=== PATIENT | female | born 1950 | race African-American/Black ===

== ENCOUNTER → 2021-08-03 10:36 | Outpatient (CLI) | payer MEDICARE, SELFPAY ==
--- NOTE | ~2021-08-03 | US_ITS ---
EXAMINATION: US pelvic complete w TV DATE: 08/03/2021 11:20 INDICATION: Abdominal bloating Comparison:No prior studies for comparison. TECHNIQUE: Multiple transabdominal and endovaginal sonographic images of the pelvis performed. FINDINGS: The uterus is surgically absent. The ovaries are not identified, likely atrophic. There is no free fluid in the pelvis. There are no abnormal masses seen on either side. IMPRESSION: 1. Unremarkable pelvic ultrasound post hysterectomy. Reviewed, dictated and finalized at location B. SWITCHMAN
== END ==
PROVIDERS: Visit Provider Obstetrics & Gynecology
DX: R14.0 Abdominal distension (gaseous) (principal); Z90.710 Acquired absence of both cervix and uterus
CPT/HCPCS: 76830; 76856

== ENCOUNTER 2022-01-09 19:39 | Emergency (ER) | payer MEDICARE, SELFPAY ==
--- NOTE | ~2022-01-09 | CT_ITS ---
EXAMINATION: CT brain wo con DATE: 01/09/2022 20:04 INDICATION: right sided headache TECHNIQUE: Computed tomography (CT) of the head was performed without intravenous contrast. The mA wa s adjusted according to patient size. Iterative reconstruction technique was employed. The dose-lengt h product was 605.33 mGy-cm. COMPARISON: 06/16/2018. FINDINGS: No acute intracranial hemorrhage or extra-axial fluid collection. No hydrocephalus, mass, or herniation. No acute ischemic infarct. Unremarkable dural venous sinus attenuation. No acute osseous abnormality. The aerated spaces are clear. Left lens replacement. Atherosclerotic intracranial calcifications. Mild atrophy and chronic white ma tter change. IMPRESSION: No acute intracranial process. Reviewed, dictated and finalized at location K.
--- NOTE | ~2022-01-09 | XR_ITS ---
EXAMINATION: XR chest 2V Exam Date/Time: 01/09/2022 19:53 CDT CLINICAL HISTORY: chest pressure Comparison: 08/04/2019. RESULT: Lines, tubes, and devices: Cholecystectomy clips. Lungs and pleura: Clear. Cardiomediastinal silhouette: Stable cardiomediastinal silhouette. Other: No acute osseous or upper abdominal finding. IMPRESSION: No acute cardiopulmonary process Reviewed, dictated and finalized at location K.
[2022-01-09 19:44] VITALS: BP 195/82; PULSE 81; RESP 16; TEMP 36.8; O2SAT 100
--- NOTE | 2022-01-09 19:49 | ECG_ITS ---
Measurements Intervals [place] Rate: 73 P: 58 NC: 163 QRS: 16 QRSD: 84 T: 86 QT: 366 QTc: 404 Interpretive Statements SINUS RHYTHM CANNOT RULE OUT SEPTAL INFARCT, AGE INDETERMINATE BORDERLINE T WAVE ABNORMALITY- HIGH LATERAL LEADS BASELINE ARTIFACT- I, AVR, AVL ABNORMAL ECG Electronically Signed On 01-09-2022 20:04:21 CDT by Gilbert Angel D.O.
[2022-01-09 20:14] LABS: Basophils Percent Auto 0.5 % (0.2-1.2); Eosinophils Absolute Auto 0.3 K/mm3 (0-0.3); Eosinophils Percent Auto 3.7 % (0-4.4); Hematocrit 45.7 % (37.0-47.0); Hemoglobin 14.8 g/dL (12.0-15.0); Immature Granulocyte Absolute 0.03 K/mm3 (0.00-0.031); Immature Granulocyte Percent A 0.4 % (0-0.5); Lymphocytes Absolute Auto 3.85 K/mm3 (0.9-3.2); Lymphocytes Percent Auto 46.3 % (18.3-44.2); Mean Corpuscular HGB Conc 32.4 g/dl (32-36); Mean Corpuscular Hemoglobin 28.5 pg (26-34); Mean Corpuscular Volume 88.1 fl (80-100); Mean Platelet Volume 10.4 fl (7.4-10.4); Monocytes Absolute Auto 0.5 K/mm3 (0.1-0.6); Monocytes Percent Auto 5.9 % (2.6-8.5); Neutrophils Absolute Auto 3.6 K/mm3 (1.3-6.7); Neutrophils Percent Auto 43.2 % (45.5-73.1); Platelet Count Result 267 k/mm3 (150-375); Red Blood Count 5.19 M/mm3 (4.2-5.4); Red Cell Distribution Width 14.2 % (11.5-14.5); White Blood Count 8.3 K/mm3 (4.5-10.0)
[2022-01-09 20:26] LABS: Alanine Aminotransferase 19 U/L (6-35); Albumin Level 4.5 g/dL (3.5-5.1); Alkaline Phosphatase 87 U/L (38-126); Anion Gap 8 mmol/L (8-16); Aspartate Amino Transferase 28 U/L (14-36); Bilirubin,Total 0.6 mg/dL (0.2-1.3); Blood Urea Nitrogen 16 mg/dL (7-17); Calcium 9.1 mg/dL (8.4-10.2); Carbon Dioxide 29 mmol/L (22-30); Chloride 103 mmol/L (98-107); Estimated CRCL calculation 43 ml/min; Estimated Glomerular Filt Rate 60; Glucose 110 mg/dL (65-110); Lipase 160 U/L (23-300); Potassium 4.1 mmol/L (3.4-5.0); Sodium 140 mmol/L (137-145)
[2022-01-09 20:30] LABS: INR 1.1; Prothrombin Time 13.6 Seconds (11.1-14.7)
[2022-01-09 20:31] LABS: Partial Thromboplastin Time 23.9 SECONDS (22.3-36.8)
[2022-01-09 20:41] LABS: Troponin I < 0.012 ng/mL (0.000-0.034)
--- NOTE | 2022-01-09 22:34 | PC.NURSE ---
Pt states she took aspirin earlier today with no relief. Pt also states she hasnt been taking her BP medications consistently. Last time she took medications was yesterday.
[2022-01-09 22:35] VITALS: BP 180/87; PULSE 72; RESP 18; O2SAT 99
--- NOTE | 2022-01-09 22:43 | ED.HA ---
HPI - Headache General Chief Complaint: Headache Stated Complaint: headache and chest discomfort Time Seen by Provider: 01/09/22 21:49 History of Present Illness HPI Narrative: 71-year-old female presenting to the emergency department for evaluation of intermittent headache and elevated blood pressure. Patient states that this has been an ongoing issue for the last few days. Patient does report she has been having intermittent chest pressure over the last few months. Patient denies any change in her chest pressure. Patient does take medications for her blood pressure and did take her amlodipine prior to arrival. Related Data Allergies Allergy/AdvReac Type Severity Reaction Status Date / Time ciprofloxacin Allergy Unknown Unknown Verified 08/04/19 17:12 Review of Systems Review of Systems: CONSTITUTIONAL: Denies fever, chills, or sweats. EYES: Denies visual changes, redness, or discharge. ENT: Denies rhinorrhea, congestion, sore throat, or otalgia. CARDIOVASCULAR: Chest pressure RESPIRATORY: Denies cough or dyspnea. GASTROINTESTINAL: Denies abdominal pain, nausea, vomiting, or diarrhea. GENITOURINARY: Denies dysuria or hematuria. SKIN: Denies rash or itching. MUSCULOSKELETAL: Denies back pain, joint pain, or myalgia. NEUROLOGIC: Headache but denies any associated numbness or weakness. PSYCHIATRIC: Denies anxiety or depression. [facility] Past Medical History Medical History (Updated 01/11/22 @ 00:00 by Jeannine Dadesiree) Hypertension Surgical History Surgical History Hx of cholecystectomy Family History Family History Mother Heart disease Social History Social History Smoking status: Never smoker Gender identity (if verbalized by the patient): Female Exam Narrative: APPEARANCE: Well appearing, no pain, no distress, well-nourished. HEAD: normocephalic, atraumatic. EYES: PERRLA/EOMI, conjunctivae clear. NOSE: Normal no drainage EARS:TMS clear with good light reflex. THROAT: Pharynx clear, no exudate. NECK: Supple. No adenopathy, no masses. RESPIRATORY: Airway patent, respirations nonlabored. Clear to auscultation bilaterally, no rales, rhonchi, wheezing. CARDIOVASCULAR: Regular rate and rhythm without murmurs rubs or gallops. ABDOMINAL: Soft, nontender, nondistended, normal bowel sounds MUSCULOSKELETAL: Moves all extremities. Strength/ROM intact, No edema, No calf tenderness. NEURO: Alert. Cranial nerves II through XII intact. Good gait. Good coordination SKIN: Warm, dry. Normal Color Course Course Emergency Course: Patient describes a sharp intermittent right-sided facial pain. Patient was started on carbamazepine and provided some hydrocodone for additional pain control. Patient states this did help her symptoms to a small extent. Patient was encouraged to continue have close follow-up with her primary care physician and with neurology. Patient had a negative head CT and chest x-ray showed no acute cardiopulmonary normality. Patient did have a negative troponin. Patient states that her symptoms have improved. Patient was updated on the results of her work-up. All questions and concerns were addressed. Vital Signs Vital signs: Vital Signs Temperature 98.2 F 01/09/22 19:44 Pulse Rate 81 01/09/22 19:44 Respiratory Rate 16 01/09/22 19:44 Blood Pressure 195/82 H 01/09/22 19:44 Pulse Oximetry 100 01/09/22 19:44 Oxygen Delivery Room Air 01/09/22 19:44 Temperature 98.2 F 01/09/22 19:44 Pulse Rate 65 01/10/22 01:15 Respiratory Rate 16 01/10/22 01:15 Blood Pressure 139/82 01/10/22 01:15 Pulse Oximetry 95 01/10/22 01:15 Oxygen Delivery Room Air 01/09/22 19:44 MDM - Headache Lab Data Result diagrams: 01/09/22 20:09 01/09/22 20:09 Labs: Lab Results
[2022-01-09] MEDS: HYDROcodone/acetaminophen (*CRX) 5-325 MG TABLET 1 TAB PO (22:57)
[2022-01-09 23:23] LABS: Troponin I < 0.012 ng/mL (0.000-0.034)
[2022-01-10] MEDS: KETOROLAC 15 MG/ML VIAL (*BKC) IV PUSH (00:16)
[2022-01-10 01:15] VITALS: BP 139/82; PULSE 65; RESP 16; O2SAT 95
== END 2022-01-10 01:16 | disposition home or self-care (01) ==
PROVIDERS: Emergency Provider Emergency Medicine
DX: G50.0 Trigeminal neuralgia (principal); I10 Essential (primary) hypertension; R94.31 Abnormal electrocardiogram [ECG] [EKG]; R07.89 Other chest pain
CPT/HCPCS: 36415; 70450; 71046; 80053; 83690; 84484; 85025; 85610; 85730; 93005; 96374; 99284; A9270; J1885

== ENCOUNTER 2022-05-17 11:07 | Emergency (ER) | payer MEDICARE, SELFPAY ==
--- NOTE | ~2022-05-17 | CT_ITS ---
EXAMINATION: CT abdomen pelvis wo con DATE: 05/17/2022 12:24 INDICATION: Abdominal pain, hypertension TECHNIQUE: Computed tomography (CT) of the right flank pain was performed without intravenous contras t. The dose-length product (DLP) was 622.91 mGy-cm. Automated exposure control and iterative reconstr uction technique were employed. COMPARISON: 04/12/2015 FINDINGS: Minimal dependent atelectasis is present in the lung bases. The heart size is normal. The g allbladder is surgically absent. There is a 7 mm cyst in the right hepatic lobe. Punctate calcificati ons in an otherwise normal spleen likely represent healed granulomatous disease. The pancreas and adr enal glands are normal. The right kidney is unremarkable. There is a punctate nonobstructing stone of the left kidney upper pole. No pathologically enlarged abdominal or pelvic lymph nodes are identifie d. There is no free intraperitoneal gas or evidence of bowel obstruction. There is mild lumbar spondy losis. IMPRESSION: 1. No CT correlate for the patient's symptoms. Reviewed, dictated and finalized at location B.
[2022-05-17 11:11] VITALS: BP 173/75; PULSE 57; RESP 20; TEMP 36.1; O2SAT 100
[2022-05-17 11:49] VITALS: BP 170/70
--- NOTE | 2022-05-17 12:00 | ECG_ITS ---
Measurements Intervals [place] Rate: 56 P: 66 MS: 176 QRS: 12 QRSD: 81 T: 97 QT: 396 QTc: 384 Interpretive Statements SINUS BRADYCARDIA CANNOT RULE OUT SEPTAL INFARCT, AGE INDETERMINATE BORDERLINE ST-T WAVE ABNORMALITY- LAT/HIGH LAT LEADS BASELINE ARTIFACT- V3 ABNORMAL ECG COMPARED TO ECG 01/09/2022 19:54:03 SINUS BRADYCARDIA NOW PRESENT Electronically Signed On 05-17-2022 13:39:34 CDT by Gilbert Angel D.O.
--- NOTE | 2022-05-17 12:00 | ED.ABDPAIN ---
HPI - Abdominal Pain General Chief Complaint: Abdominal Pain Stated Complaint: high blood pressure, abd pain Time Seen by Provider: 05/17/22 11:34 History of Present Illness HPI narrative: 71-year-old female presents to the emergency room today for complaints of elevated blood pressure for the past 2 weeks and epigastric and right flank pain that has been going on for a while now. She says that she wakes up every morning with a mild headache. She says is not bad enough to take anything [id number] for it. She says that in the mornings her blood pressure will be around 200/98. She did schedule a follow-up with her primary care provider but it will not be until next Saturday. She does have a history of hypertension and says that she does take medication for this. She denies having any vomiting or diarrhea but does report that she feels nauseated at times. She has previously had her gallbladder removed. She is more bothered by the right flank pain that she has been having and is worried about her kidney. Related Data Allergies Allergy/AdvReac Type Severity Reaction Status Date / Time ciprofloxacin Allergy Unknown Unknown Verified 08/04/19 17:12 Review of Systems Review of Systems: CONSTITUTIONAL: Denies fever, chills, or sweats. EYES: Denies visual changes, redness, or discharge. ENT: Denies rhinorrhea, congestion, sore throat, or otalgia. CARDIOVASCULAR: Denies chest pain, palpitations, or edema. RESPIRATORY: Denies cough or dyspnea. GASTROINTESTINAL: As per HPI GENITOURINARY: Denies dysuria or hematuria. Reports right flank pain SKIN: Denies rash or itching. MUSCULOSKELETAL: Denies back pain, joint pain, or myalgia. NEUROLOGIC: reports headache, Denies numbness, dizziness, or weakness. PSYCHIATRIC: Denies anxiety or depression. [facility] Past Medical History Medical History (Updated 05/17/22 @ 14:02 by Kaley Reich APRN) Hypertension Surgical History Surgical History Hx of cholecystectomy Family History Family History Mother Heart disease Social History Social History Smoking status: Never smoker Gender identity (if verbalized by the patient): Female Exam Narrative: GENERAL: Well-appearing, well-nourished, and in no acute distress. HEAD: Normocephalic, atraumatic. EYES: PERRLA and EOMI. NECK: Supple. No adenopathy or masses. CHEST: Clear to auscultation. No respiratory distress. No wheezes rales or rhonchi HEART: Regular rate and rhythm. No murmur heard. Normal peripheral pulses. ABDOMEN: Soft, nontender, nondistended, normal active bowel sounds. EXTREMITIES: Normal range of motion. No edema. SKIN: Warm, dry, no rash. NEURO: No focal deficits. Alert and oriented x3. PSYCH: Normal mood and affect. Course Vital Signs Vital signs: Vital Signs Temperature 36.1 C L 05/17/22 11:11 Pulse Rate 57 L 05/17/22 11:11 Respiratory Rate 20 05/17/22 11:11 Blood Pressure 173/75 H 05/17/22 11:11 Pulse Oximetry 100 05/17/22 11:11 Oxygen Delivery Room Air 05/17/22 11:11 Temperature 36.1 C L 05/17/22 11:11 Pulse Rate 57 L 05/17/22 11:11 Respiratory Rate 20 05/17/22 11:11 Blood Pressure 170/70 H 05/17/22 11:49 Pulse Oximetry 100 05/17/22 11:11 Oxygen Delivery Room Air 05/17/22 11:11 MDM - Abdominal Pain Lab Data Attestation: I reviewed the patient's lab results. Result diagrams: 05/17/22 13:17 05/17/22 13:17 Labs: Lab Results 05/17/22 05/17/22 05/17/22 Range/Units 13:17 13:17 13:17 WBC 7.6 (4.5-10.0) K/mm3 RBC 5.00 (4.2-5.4) M/mm3 Hgb 14.1 (12.0-15.0) g/dL Hct 43.5 (37.0-47.0) % MCV 87.0 (80-100) fl MCH 28.2 (26-34) pg MCHC 32.4 (32-36) g/dl RDW 14.7 H (11.5-14.5) % Plt Count 193 (150-375) k/mm3 MPV
[2022-05-17 13:25] LABS: Basophils Absolute Auto 0.1 K/mm3 (0.0-0.1); Basophils Percent Auto 0.7 % (0.2-1.2); Eosinophils Absolute Auto 0.2 K/mm3 (0-0.3); Eosinophils Percent Auto 2.6 % (0-4.4); Hematocrit 43.5 % (37.0-47.0); Hemoglobin 14.1 g/dL (12.0-15.0); Immature Granulocyte Absolute 0.02 K/mm3 (0.00-0.031); Immature Granulocyte Percent A 0.3 % (0-0.5); Lymphocytes Percent Auto 42.3 % (18.3-44.2); Mean Corpuscular HGB Conc 32.4 g/dl (32-36); Mean Corpuscular Hemoglobin 28.2 pg (26-34); Monocytes Absolute Auto 0.4 K/mm3 (0.1-0.6); Monocytes Percent Auto 5.3 % (2.6-8.5); Neutrophils Absolute Auto 3.7 K/mm3 (1.3-6.7); Neutrophils Percent Auto 48.8 % (45.5-73.1); Platelet Count Result 193 k/mm3 (150-375); Red Cell Distribution Width 14.7 % (11.5-14.5); White Blood Count 7.6 K/mm3 (4.5-10.0)
[2022-05-17 13:28] LABS: Appearance Urine Clear (Clear); Bilirubin Urine Negative (Negative); Blood Urine Negative (Negative); Color Urine Yellow (Yellow); Glucose Urine UA Negative (Negative); Ketones Urine Negative (Negative); Leukocyte Esterase Ur 1+ LEU/UL (Negative); Nitrate Urine Negative (Negative); Protein Urine Negative (Negative); Urobilinogen Urine 0.2 mg/dL (<2.0); pH Urine 5.5 (5.0-9.0)
[2022-05-17 13:36] LABS: Alanine Aminotransferase 17 U/L (6-35); Albumin Level 4.2 g/dL (3.5-5.1); Alkaline Phosphatase 83 U/L (38-126); Anion Gap 7 mmol/L (8-16); Aspartate Amino Transferase 21 U/L (14-36); Bilirubin,Total 0.6 mg/dL (0.2-1.3); Blood Urea Nitrogen 16 mg/dL (7-17); Calcium 9.4 mg/dL (8.4-10.2); Carbon Dioxide 27 mmol/L (22-30); Chloride 107 mmol/L (98-107); Estimated CRCL calculation 43 ml/min; Estimated Glomerular Filt Rate 60; Glucose 113 mg/dL (65-110); Lipase 117 U/L (23-300); Potassium 4.5 mmol/L (3.4-5.0); Sodium 141 mmol/L (137-145)
[2022-05-17 13:43] LABS: Mucus Urine Rare /lpf; Squamous Epithelial Cell Urine Occasional /hpf (Few)
[2022-05-17 13:48] LABS: Add Urine Microscopic? YES; Troponin I < 0.012 ng/mL (0.000-0.034)
== END 2022-05-17 14:22 | disposition home or self-care (01) ==
PROVIDERS: Emergency Provider Nurse Practitioner Family
DX: N39.0 Urinary tract infection, site not specified (principal); I10 Essential (primary) hypertension; R10.9 Unspecified abdominal pain; R10.13 Epigastric pain; G89.29 Other chronic pain
CPT/HCPCS: 36415; 74176; 80053; 81001; 83690; 84484; 85025; 87086; 87088; 93005; 99284

== ENCOUNTER 2023-12-25 12:18 | Emergency (ER) | payer MEDICARE, SELFPAY ==
[2023-12-25 12:20] VITALS: BP 152/77; PULSE 65; RESP 22; TEMP 36.8; O2SAT 100
--- NOTE | 2023-12-25 12:27 | ECG_ITS ---
SEE SCANNED COPY FOR CONFIRMED REPORT MTDD
[2023-12-25] MEDS: ASPIRIN 81 MG CHEWABLE TABLET 324 MG PO (12:34)
--- NOTE | 2023-12-25 12:41 | ED.GENADULT ---
HPI - General Adult General Chief complaint: Chest Pain Stated complaint: stomach discomfort,left arm hurts, chest pain Source: patient Mode of arrival: ambulatory Limitations: no limitations History of Present Illness HPI narrative: Patient presents for evaluation of left-sided chest pain for the past week. She states pain is intermittent, without descriptive quality, rated 8/10 in severity. She states pain occurs once per day. She cannot identify and aggravating or alleviating factors. She is not having any chest pain at the present time. She reports a constant pain in her LUE for the same duration of time. She rates the pain 7/10 severity describes it as a dull ache. She reports a sensation of a lump in the abdomen . She has SOB and states she feels a need to cough in order to breathe . She has an underlying history of HTN and hyperlipidemia. She states two years ago she was told she had a myocardial infarction. She did not follow up with cardiology. She saw her PCP 2 days ago and mentioned her symptoms at that time. She states she was prescribed medication to address her cholesterol two days ago but did not pick it up. She does not smoke. She states she did not seek medical attention earlier because she is stubborn . Related Data Allergies Allergy/AdvReac Type Severity Reaction Status Date / Time ciprofloxacin Allergy Unknown Unknown Verified 08/04/19 17:12 Review of Systems Review of Systems: CONSTITUTIONAL: Denies fever, chills, or sweats. EYES: Denies visual changes, redness, or discharge. ENT: Denies rhinorrhea, congestion, sore throat, or otalgia. CARDIOVASCULAR: Reports recent chest pain, none currently. Denies palpitations RESPIRATORY: Reports SOB and feels the need to cough in order to breathe GASTROINTESTINAL: Reports a sensation of a lump in the abdomen. Denies abdominal pain, nausea, vomiting, or diarrhea. GENITOURINARY: Denies dysuria or hematuria. SKIN: Denies rash or itching. MUSCULOSKELETAL: Reports pain in LUE NEUROLOGIC: Denies headache, numbness, dizziness, or weakness. PSYCHIATRIC: Denies anxiety or depression. [facility] Past Medical History Medical History Hyperlipidemia Hypertension Myocardial infarction Surgical History Surgical History Hx of cholecystectomy Family History Family History (Reviewed 12/25/23 @ 12:49 by Sb Juarez [facility]) Mother Heart disease Social History Social History (Updated 12/25/23 @ 12:50 by Sb Juarez [facility]) Smoking status: Never smoker Alcohol intake: never Substance use: never Living arrangements: with family Gender identity (if verbalized by the patient): Female Sexual Orientation (if Verbalized by the Patient): Straight or Heterosexual Spiritual care concerns: No Exam Narrative: GENERAL: Well-appearing, well-nourished, and in no acute distress. HEAD: Normocephalic, atraumatic. EYES: PERRLA and EOMI. ENT: Nares clear, no rhinorrhea or epistaxis. Mucous membranes moist. Oropharynx without tonsillar hypertrophy exudate or other lesions. Bilateral TMs pearly araiza nonbulging NECK: Supple. No adenopathy or masses. No carotid bruits or JVD CHEST: Clear to auscultation. No respiratory distress. No wheezes rales or rhonchi HEART: Regular rate and rhythm. No murmur heard. Normal peripheral pulses. ABDOMEN: Soft, nontender, nondistended, normal active bowel sounds. EXTREMITIES: Normal range of motion. No edema. SKIN: Warm, dry, no rash. NEURO: No focal deficits. Alert and oriented x3. PSYCH: Normal mood and affect. Course Course Emergency Course: this is a 73-year-old female who presented for evaluation of chest pain and left upper extremity pain. She has multiple risk factors for ACS. Recommend she be transferred to the emergency department for further workup. She is agreeable
== END 2023-12-25 12:38 | disposition short-term general hospital (02) ==
PROVIDERS: Emergency Provider Nurse Practitioner
DX: R07.9 Chest pain, unspecified (principal); E78.5 Hyperlipidemia, unspecified; I10 Essential (primary) hypertension; I25.2 Old myocardial infarction
CPT/HCPCS: 93005; 99215; A9270; G0463

== ENCOUNTER 2023-12-25 12:56 | Emergency (ER) | payer MEDICARE, SELFPAY ==
--- NOTE | ~2023-12-25 | XR_ITS ---
EXAMINATION: XR chest 2V 12/25/2023 14:00 INDICATION: Chest pain. Left arm pain. PROCEDURE: 2 view chest COMPARISON: No prior studies for comparison. FINDINGS: There is right middle lobe atelectasis/scarring. No focal pneumonia, edema, pleural effusio n or pneumothorax. The cardiomediastinal silhouette is within normal limits. There are no pleural ef fusions. There is no pneumothorax suspected. IMPRESSION: 1: Right middle lobe atelectasis/scarring.. Reviewed, dictated and finalized at location B.
--- NOTE | 2023-12-25 12:57 | ECG_ITS ---
SEE SCANNED COPY FOR CONFIRMED REPORT MTDD
[2023-12-25 13:02] VITALS: BP 160/55; PULSE 60; RESP 16; TEMP 36.4; O2SAT 98
[2023-12-25 13:22] LABS: Basophils Percent Auto 0.5 % (0.2-1.2); Eosinophils Absolute Auto 1.2 K/mm3 (0-0.3); Eosinophils Percent Auto 14.4 % (0-4.4); Hemoglobin 14.6 g/dL (12.0-15.0); Immature Granulocyte Absolute 0.03 K/mm3 (0.00-0.031); Immature Granulocyte Percent A 0.4 % (0-0.5); Lymphocytes Absolute Auto 3.35 K/mm3 (0.9-3.2); Lymphocytes Percent Auto 41.3 % (18.3-44.2); Mean Corpuscular HGB Conc 32.4 g/dl (32-36); Mean Corpuscular Volume 86.4 fl (80-100); Mean Platelet Volume 10.7 fl (7.4-10.4); Monocytes Absolute Auto 0.5 K/mm3 (0.1-0.6); Monocytes Percent Auto 6.7 % (2.6-8.5); Neutrophils Percent Auto 36.7 % (45.5-73.1); Platelet Count Result 250 k/mm3 (150-375); Red Blood Count 5.21 M/mm3 (4.2-5.4); Red Cell Distribution Width 14.6 % (11.5-14.5); White Blood Count 8.1 K/mm3 (4.5-10.0)
[2023-12-25 13:51] LABS: Alanine Aminotransferase 18 U/L (6-35); Albumin Level 4.3 g/dL (3.5-5.1); Alkaline Phosphatase 82 U/L (38-126); Anion Gap 6 mmol/L (4-12); Aspartate Amino Transferase 25 U/L (14-36); Bilirubin,Total 0.7 mg/dL (0.2-1.3); Blood Urea Nitrogen 13 mg/dL (7-17); Carbon Dioxide 25 mmol/L (22-30); Chloride 106 mmol/L (98-107); Estimated Glomerular Filt Rate > 60; Glucose 86 mg/dL (65-110); Lipase 143 U/L (23-300); Potassium 4.4 mmol/L (3.4-5.0); Sodium 137 mmol/L (137-145)
[2023-12-25 14:03] LABS: Troponin I < 0.012 ng/mL (0.000-0.034)
[2023-12-25 15:35] VITALS: BP 178/69; PULSE 56; TEMP 36.3; O2SAT 100
--- NOTE | 2023-12-25 15:37 | ECG_ITS ---
SEE SCANNED COPY FOR CONFIRMED REPORT MTDD
[2023-12-25 16:07] LABS: Prothrombin Time 13.7 Seconds (11.1-14.7)
[2023-12-25 16:19] LABS: Troponin I < 0.012 ng/mL (0.000-0.034)
--- NOTE | 2023-12-25 16:33 | ED.CHESTPAIN ---
HPI - Chest Pain General Chief Complaint: Chest Pain Stated Complaint: resolved cp Time Seen by Provider: 12/25/23 16:38 Source: patient Mode of arrival: ambulatory Limitations: no limitations History of Present Illness HPI narrative: This is a 73-year-old female with PMH of HTN, CAD who presents to the ED with chief complaint of chest pain intermittent for the past week. Patient reports it feels like the pain goes from the left arm into the chest at times. As I interviewed the patient she states she is asymptomatic. Reports pain spontaneously resolved. No specific triggering factors. No association with exertion. Denies syncope, sweats, vomiting or nausea. Denies leg swelling. Denies cough, fevers, chills, back pain, numbness, weakness. States she has been taking most of her medications as prescribed but ran out of carvedilol and has not been taking any since. Related Data Home Medications Medication Instructions Recorded Confirmed amlodipine 5 mg tablet 5 mg PO DAILY 12/25/23 12/25/23 atorvastatin 10 mg tablet 10 mg PO DAILY 12/25/23 12/25/23 brimonidine 0.2 % eye drops See Rx Instructions .Route .COMPLEX 12/25/23 12/25/23 brinzolamide 1 %-brimonidine 0.2 % See Rx Instructions .Route .COMPLEX 12/25/23 12/25/23 eye drops,suspension (Simbrinza) dorzolamide 2 % eye drops See Rx Instructions .Route .COMPLEX 12/25/23 12/25/23 latanoprost 0.005 % eye drops See Rx Instructions .Route .COMPLEX 12/25/23 12/25/23 omeprazole 40 mg capsule,delayed 40 mg PO DAILY 12/25/23 12/25/23 release Allergies Allergy/AdvReac Type Severity Reaction Status Date / Time ciprofloxacin Allergy Unknown Unknown Verified 12/25/23 15:03 Review of Systems Review of Systems: All systems as dictated in HPI [facility] Past Medical History Medical History Hyperlipidemia Hypertension Myocardial infarction Surgical History Surgical History Hx of cholecystectomy Family History Family History (Reviewed 12/25/23 @ 12:49 by LARISSA Dockery, Tianna Mother Heart disease Social History Social History (Updated 12/25/23 @ 12:[address] [facility], ) Smoking status: Never smoker Alcohol intake: never Substance use: never Living arrangements: with family Gender identity (if verbalized by the patient): Female Sexual Orientation (if Verbalized by the Patient): Straight or Heterosexual Spiritual care concerns: No Exam Narrative: GENERAL: Well-appearing, well-nourished, and in no acute distress. HEAD: Normocephalic, atraumatic. EYES: PERRLA and EOMI. ENT: Nares clear, no rhinorrhea or epistaxis. Mucous membranes moist. Oropharynx without tonsillar hypertrophy exudate or other lesions. NECK: Supple. No adenopathy or masses. CHEST: No respiratory distress. Clear to auscultation. No wheezes rales or rhonchi HEART: Regular rate and rhythm. No murmur heard. Normal peripheral pulses. ABDOMEN: Soft, nontender, nondistended, normal active bowel sounds. MSK: Normal range of motion. No edema. SKIN: Warm, dry, no rash. NEURO: Alert and oriented x3. No focal deficits. PSYCH: Normal mood and affect. Course Vital Signs Vital signs: Vital Signs Temperature 97.6 F 12/25/23 13:02 Pulse Rate 60 12/25/23 13:02 Respiratory Rate 16 12/25/23 13:02 Blood Pressure 160/55 H 12/25/23 13:02 Pulse Oximetry 98 12/25/23 13:02 Temperature 97.4 F L 12/25/23 15:35 Pulse Rate 56 L 12/25/23 15:35 Respiratory Rate 16 12/25/23 13:02 Blood Pressure 178/69 H 12/25/23 15:35 Pulse Oximetry 99 12/25/23 16:53 Oxygen Delivery Room Air 12/25/23 16:53 MDM - Chest Pain MDM Narrative Medical decision making narrative: This is a 73-year-old female who presents to the ED with chief complaint of intermittent chest pain for a week. Patient is actually asymptomatic by the fernando
[2023-12-25 16:53] VITALS: O2SAT 99
== END 2023-12-25 16:54 | disposition home or self-care (01) ==
LOC: ANHED 16:42
PROVIDERS: Student in an Organized Health Care Education/Training Program; Emergency Provider Physician Assistant
DX: R07.9 Chest pain, unspecified (principal); I25.10 Atherosclerotic heart disease of native coronary artery without angina pectoris; I10 Essential (primary) hypertension; E78.5 Hyperlipidemia, unspecified; I25.2 Old myocardial infarction; R00.1 Bradycardia, unspecified; R94.31 Abnormal electrocardiogram [ECG] [EKG]
CPT/HCPCS: 36415; 71046; 80053; 83690; 84484; 85025; 85610; 85730; 93005; 99284; A9270

== ENCOUNTER 2025-05-10 19:23 | Emergency (ER) | payer MEDICARE, SELFPAY ==
--- OUTSIDE RECORDS SUMMARY | 2015-09-30 09:00 | XMS_ITS | Continuity of Care Document ---
Author Organization [facility] Address [address] [place] [address] [address] [place] [address] Phone Care Team Providers Care Physician Asst Name Role Phone bennettopal Paul GRAY Unavailable Unavailable Procedures Procedure Date Progress Note THERAPEUTIC EXERCISES NEUROMUSCULAR RE-ED MANUAL THERAPY FUNC ACTIVITY HOT/COLD PACK ELECTRIC STIMULATION UNATT THERAPEUTIC EXERCISES NEUROMUSCULAR RE-ED MANUAL THERAPY FUNC ACTIVITY HOT/COLD PACK ELECTRIC STIMULATION UNATT THERAPEUTIC EXERCISES NEUROMUSCULAR RE-ED MANUAL THERAPY FUNC ACTIVITY HOT/COLD PACK ELECTRIC STIMULATION UNATT THERAPEUTIC EXERCISES NEUROMUSCULAR RE-ED MANUAL THERAPY FUNC ACTIVITY HOT/COLD PACK ELECTRIC STIMULATION UNATT THERAPEUTIC EXERCISES NEUROMUSCULAR RE-ED MANUAL THERAPY HOT/COLD PACK ELECTRIC STIMULATION UNATT THERAPEUTIC EXERCISES NEUROMUSCULAR RE-ED MANUAL THERAPY HOT/COLD PACK ELECTRIC STIMULATION UNATT THERAPEUTIC EXERCISES NEUROMUSCULAR RE-ED MANUAL THERAPY HOT/COLD PACK ELECTRIC STIMULATION UNATT THERAPEUTIC EXERCISES MANUAL THERAPY HOT/COLD PACK ELECTRIC STIMULATION UNATT PT EVALUATION THERAPEUTIC EXERCISES MANUAL THERAPY HOT/COLD PACK Advance Directives Directive Yes / No Effective Date File Name No Information Encounters Encounter Description Practice Location Reason(s) For Visit Diagnoses Date Provider Providers Copied on Encounter [facility], [id number], tel:[phone] [place] No Information 6 [address]. [address] [place] [address], [facility], . tel:[phone] Referring Provider: Lakhwinder Saenz, [address] [place] [address] [place] [address], [facility]. tel:[phone] [facility] [address], [id number], tel:[phone] [place] No Information [address] [place] [address], [address], [facility], . tel:[phone] Referring Provider: Lakhwinder Saenz, [address] [place] [address] [place] [address], [address]. tel:[phone] [facility] [address], [id number], tel:[phone] [place] No Information 6 [place]. [address] [place] [address], [address], [place], [facility], . tel:[phone] Referring Provider: Lakhwinder Saenz, [address] [place] [address] [address], [address]. tel:[phone] [facility] [address], [id number], [place] tel:[phone] [place] No Information [address] [address] [facility], [address], [place], [facility], . tel: [phone] Referring Provider: Lakhwinder Saenz [address] [place] [address] [address], [place], [address]. tel:[phone] [facility] [address], [id number], tel:[phone] Black No Information 3-[address] [place] [address], [address], [place], [facility], . tel: [phone] Referring Provider: Lakhwinder Saenz [address] [place] [address] [address], [address]. tel:[phone] [facility] [address], [id number], tel:[phone] Black No Information [address] [place] [address], [address], [place], [facility], [place]. tel:[phone] Referring Provider: Lakhwinder Saenz [address] [place] [address] [address], [address]. tel:[phone] [facility] [address], [id number], tel:[phone] [place] No Information [address] [place] [address], [address], [address], [place]. tel:[phone] Referring Provider: Lakhwinder Saenz [address] [place] [address] [address], [address]. tel:[phone] [facility] [address], [id number], tel:[phone] Black No Information 6 [address]. [address] [facility], [address], [address], [place]. tel:[phone] Referring Provider: Lakhwinder Saenz, [address] [place] [address] [address], [place], [address]. tel:[phone] [facility], [address] [facility] [address], [place], [place], [id number], [place] tel:[phone] Black Muscle wasting and atrophy, NEC, right thighStiffness of right hip, not elsewhere classifiedUnspecifie d abnormalities of gait and mobilityPain in right hip Maru Sultana. [address] [facility], [facility] [address], [place], [address], [place]. tel:[phone] Referring Provider: Lakhwinder Saenz, [address] [place] [address] Suite [facility], [place], [place], [facility]. tel:[phone] Family History Family Member Type Diagnosis Age At Onset No Information Payers Payer name Insurance type Covered constitution party ID Nancy benjamin(s) Norma [id number] [facility] 2016 Social History Type Description Quantity Date Captured Comments Sex Female Smoking Status No Information Chief Complaint And Reason For Visit No Information Reason For Referral Reason For Referral No Information History Of Present Illness Encounter Date Complaint History Of Prese nt Illness No Information Functional Status Date Functional Assessmen t No Information Instructions Date Instruction Additional Infor mation No Information Assessments Type Assessment Date No Information Patient Care Teams Name Effective Dates (start - stop) Status Members No Information
--- OUTSIDE RECORDS SUMMARY | 2015-09-30 09:00 | XMS_ITS | Continuity of Care Document ---
Author Organization [facility] Address [address] [place] [address] [address] [place] [address] Phone Care Team Providers Care Web Worker Name Role Phone bennettopal Paul GRAY Unavailable [...] Diagnoses Date Provider Providers Copied on Encounter [facility], [id number], tel:[phone] [place] No Information 6 [place]. [address] [place] [address], [facility], . tel:[phone] Referring Provider: Lakhwinder Saenz, [address] [place] [address] [place] [address], [facility]. tel:[phone] [facility] [address], [id number], tel:[phone] [place] No Information [address] [place] [address], [address], [facility], . tel:[phone] Referring Provider: Lakhwinder Saenz, [address] [place] [address] [place] [address], [address]. tel:[phone] [facility] [address], [id number], tel:[phone] [place] No Information 6 [address]. [address] [place] [address], [address], [place], [facility], . tel:[phone] Referring Provider: Lakhwinder Saenz, [address] [place] [address] [address], [address]. tel:[phone] [facility] [address], [id number], [place] tel:[phone] [place] No Information [address] [address] [facility], [address], [place], [facility], . tel: [phone] Referring Provider: Lakhwinder Saenz [address] [place] [address] [address], [address]. tel:[phone] [facility] [address], [id number], tel:[phone] [place] No Information 3-[address] [place] [address], [address], [place], [facility], . tel: [phone] Referring Provider: Lakhwinder Saenz [address] [place] [address] [address], [address]. tel:[phone] [facility] [address], [id number], tel:[phone] [place] No Information [address] [place] [address], [address], [place], [facility], [place]. tel:[phone] Referring Provider: Lakhwinder Saenz [address] [place] [address] [address], [address]. tel:[phone] [facility] [address], [id number], tel:[phone] [place] No Information [address] [place] [address], [address], [address], [place]. tel:[phone] Referring Provider: Lakhwinder Saenz [address] [place] [address] [address], [address]. tel:[phone] [facility] [address], [id number], tel:[phone] [place] No Information 6 [address] [address] [facility], [address], [address], [place]. tel:[phone] Referring Provider: Lakhwinder Saenz, [address] [place] [address] [address], [place], [address]. tel:[phone] [facility], [address] [facility] 300, [place], [place], [id number], [place] tel:[phone] [place] Muscle wasting and atrophy, NEC, right thighStiffness of right hip, not elsewhere classifiedUnspecifie d abnormalities of gait and mobilityPain in right hip Maru Sultana. [address] [facility], [facility] [address], [place], [address], [place]. tel:[phone] Referring Provider: Lakhwinder Saenz, [address] [place] [address] [address] [facility], [place], [place], [facility]. tel:[phone] Family History Family Member Type Diagnosis Age At Onset No Information Payers Payer name Insurance type Covered green party ID Nancy benjamin(s) Norma [id number] [facility] Social History Type Description Quantity Date [...]
--- OUTSIDE RECORDS SUMMARY | 2025-02-08 06:30 | XMS_ITS ---
Author Organization [facility] Address [address] [place] [address] Care Team Providers Care Edge Stitcher Name Role Phone Lakhwinder Saenz Primary Care Provider [phone] REASON FOR VISIT 5 mos Encounters Encounter Location Date Provider Diagnosis [facility] [address] [place] [address] 02/08/2025 Lakhwinder Saenz Plan Of Treatment No Information Progress Notes * Abigail LOUISEDOB:1950 ([age] yo F)Acc No.[id number]:02/08/2025 Progress Notes Patient: Abigail BARRAZA Provider: Han Saenz MD :1950 A ge:74 Y S ex:Female Date:02/08/2025 Address:[address] , [place], [place]-[id number] Subjective: * Chief Complaints: * 1 . 5 mos. * Medical History: Objective: * Vitals: Assessment: Plan: * Treatment: * Images: * Electronic signature of Marshall Saenz on 05/10/2025 at 07:25 PM CDT Sign off status: Pending * Provider: Han Saenz MD Date: 02/08/2025 Generated for Daija alexis/Ananda/eThersonsmitting on: 0 05/10/2025 07:25 PM CDT
--- NOTE | ~2025-05-10 | XR_ITS ---
EXAMINATION: XR chest 1V portable 05/10/2025 20:04 INDICATION: Chest pain PROCEDURE: AP portable chest COMPARISON: 12/25/2023 FINDINGS: The lungs are clear. The cardiomediastinal silhouette is within normal limits. There are no pleural effusions. There is no pneumothorax suspected. IMPRESSION: 1: NO ACUTE CARDIOPULMONARY DISEASE. Reviewed, dictated and finalized at location O.
--- NOTE | ~2025-05-10 | CT_ITS ---
EXAMINATION: CT diagnostic chest wo con DATE: 05/10/2025 21:14 INDICATION: Cough. Evaluate for pneumonia. TECHNIQUE: Computed tomography (CT) of the chest was performed without intravenous contrast. The dose-length product was 274.03 mGy-cm. Automated exposure control and iterative reconstruction technique were employed. COMPARISON: Chest x-ray dated 05/10/2025 FINDINGS: Heart size normal. No significant pleural or pericardial effusion. There are calcified granulomas of the liver and spleen. Status post cholecystectomy. No thoracic lymphadenopathy. There is mild atherosclerosis. There are are patchy groundglass opacities in the right middle lobe and lower lobe. There is left lower lobe atelectasis. Moderate thoracic spondylosis. No pneumothorax. IMPRESSION: 1. Patchy groundglass opacities in the right lung. Differential diagnosis includes infection, hypersensitivity pneumonitis and edema. 2: Left lower lobe atelectasis. Reviewed, dictated and finalized at location O. IMPRESSION: 1. Patchy groundglass opacities in the right lung. Differential diagnosis inclu lauren infection, hypersensitivity pneumonitis and edema. 2: Left lower lobe atelectasis.
--- NOTE | 2025-05-10 19:25 | ECG_ITS ---
Test Date: 2025-05-10 19:29:27 Measurements Intervals [place] Rate: 72 P: 43 SC: 158 QRS: 56 QRSD: 125 T: 147 QT: 400 QTc: 438 Interpretive Statements SINUS RHYTHM LEFT BUNDLE BRANCH BLOCK [120+ ms QRS DURATION, 80+ ms Q/S IN V1/V2, 85+ ms R IN I/aVL/V5/V6] ABNORMAL ELECTROCARDIOGRAM No previous ECG available for comparison Electronically Signed On 05-12-2025 15:26:53 CDT by Mitchel Christopher M.D.
--- OUTSIDE RECORDS SUMMARY | 2025-05-10 19:26 | XMS_ITS | Clinical Summary ---
Author Organization [facility] Address [address] [place] [address] Phone Care Team Providers Care Merchandising Assistant Name Role Phone Alice Mcdonald MD Primary Care Provider [phone] Allergies No known active allergies Medications losartan-hydroc hlorothiazide (HYZAAR) 50-12.5 mg Oral Tab Take 1 Tab by mouth daily. Active brimonidine (ALPHAGAN P) 0.15 % OP Drop Administer 1 Drop in both eyes every 8 hours. Active fluticasone-el meterol (ADVAIR DISKUS) 250-50 mcg/Dose Inhalation DsDv Take 1 Puff by inhalation 2 times daily. Active IPRATROPIUM BROMIDE (ATROVENT HFA IN) Take 2 Puffs by inhalation every 6 hours as needed. Active omeprazole (PRILOSEC) 20 mg Oral CpDR Take 1 Cap by mouth daily. 30 Cap 1 04/20/ 9 Active Active Problems Problem Noted Date Diagnosed Date Benign hypertension 03/14/2009 Glaucoma 03/14/2009 Family History Medical History Relation Name Comments Other Father unknown. 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 Gender Identity Not on file Sexual Orientation Not on file Last Filed Vital Signs Vital Sign Reading Time Taken Comments Blood Pressure 102/76 03/14/2009 2:07 PM CDT Pulse 72 03/14/2009 2:07 PM CDT Temperature 36.9 C (98.4 F) 03/14/2009 2:07 PM CDT Respiratory Rate - - Oxygen Saturation - - Inhaled Oxygen Concentration - - Weight 83.5 kg (184 lb) 03/14/2009 2:07 PM CDT Height 160 cm (5' 3) 03/14/2009 2:07 PM CDT Body Mass Index 32.59 03/14/2009 2:07 PM CDT Plan of Treatment Health Maintenance Due Date Last Done Comments DTAP/TDAP/TD VACCINES (1 - Tdap) 1970 BREAST CANCER SCREENING 1991 COLORECTAL SCREENING 1996 Colorectal Cancer Screening 1996 FIT-DNA Q 3 years 1996 FIT/FOBT Q 1 year 1996 Flex Sig/CT Colonography Q 5 years 1996 PNEUMOCOCCAL VACCINE 50+ YEARS (1 of 1 - PCV) 09/20/19 02 ZOSTER VACCINE (1 of 2) 2001 OSTEOPOROSIS SCREENING 2016 INFLUENZA VACCINE (#1) 2025 RSV VACCINE (60+ or ) (1 - 1-dose 75+ series) 2026 Insurance BLUE ACCESS/TRUE BLUE PPO Care Teams Merchandising Assistant Relationship Specialty Start Date End Date Alice Mcdonald MD PCP - General 02/21/09
--- OUTSIDE RECORDS SUMMARY | 2025-05-10 19:26 | XMS_ITS | Clinical Summary ---
Author Organization [facility] Care Team Providers Care Uniforms Sales Representative Name Role Phone Unavailable Primary Care Provider Unavailabl e Social History Tobacco Use Types Packs/Day Years Used Date Smoking Tobacco: Never Assessed Comments Unknown Sex and Gender Information Value Date Recorded Sex Assigned at Not on file Legal Sex Female 1:14 PM SOLUTION MIXER Gender Identity Not on file Sexual Orientation Not on file Plan of Treatment Health Maintenance Due Date Last Done Comments Hepatitis C Virus (HCV) Screening 1950 TdaP Immunization 1950 Cologuard 1996 Colonoscopy 1996 Colorectal Cancer Screening 1996 Immunochemical Fecal Occult Blood 1996 Pneumococcal Immunization (5 0+ years) (1 of 1 - PCV) 2001 Zoster Immunization (1 of 2) 2001 SARS-COV-2 Immunization ( - 2023-25 season) 2024 Influenza Immunization (#1) 2025 Respiratory Syncytial Virus (RSV) Immunization (Adult) (1 - 1-dose 75+ series) 2026 Hepatitis B Immunization Aged Out No longer eligible based on patient's age to complete this topic Human Papillomavirus (HPV) Immunization Aged Out No longer eligible b ased on patient's age to complete this topic Meningococcal Immunization (ACWY) Aged Out No longer eligible based on patient's age to complete this topic Rotavirus Immunization Aged Out No lo nger eligible based on patient's age to complete this topic
[2025-05-10 19:33] VITALS: BP 134/100; PULSE 79; RESP 20; TEMP 36.8; O2SAT 100
--- NOTE | 2025-05-10 19:49 | ED_ITS ---
HPI - General Adult General Chief complaint: Shortness of Breath/Dyspnea Stated complaint: pneumonia Time Seen by Provider: 05/10/25 19:45 History of Present Illness HPI narrative: This is a 74-year-old woman presenting ED with chief complaint of cough. Patient says she has had a cough for 2 weeks. she was initially prescribed a Z- Skinny her symptoms do not improve. An x-ray was then taken an urgent care and she was diagnosed with pneumonia and put on a course of Augmentin. She still has a dry cough that will not go away. When she coughs she does have pain in her upper back and in her chest. Patient has had nausea and diarrhea but no vomiting. She denies fevers. Her whole family has been sick with cough but is taking her longer to get over it. Related Data Home Medications ?Medication ?Instructions ?Recorded ?Confirmed ?Last Taken ?Type amlodipine 5 mg tablet 5 mg PO DAILY 12/25/2312/24 Unknown History atorvastatin 10 mg tablet 10 mg PO DAILY 12/25/2312/02 Unknown History brimonidine 0.2 % eye drops See Rx Instructions .Route .COMPLEX 12/25/23 12/25/23 Unknown History brinzolamide 1 %-brimonidine 0.2 % See Rx Instructions .Route .COMPLEX 12/25/23 12/25/23 Unknown History eye drops,suspension (Simbrinza) dorzolamide 2 % eye drops See Rx Instructions .Route . COMPLEX 12/25/23 12/25/23 Unknown History latanoprost 0.005 % eye drops See Rx Instructions .Rou te .COMPLEX 12/25/23 12/25/23 Unknown History omeprazole 40 mg capsule,delayed 40 mg PO DAILY 12/25/23 Unknown History release Allergies Allergy/AdvReac Type Severity Reaction Status Date / Time ciprofloxacin Allergy Unknown Unknown Verified 05/10/25 19:41 [facility] Past Medical History Medical History Myocardial infarction Hyperlipidemia Hypertension Surgical History Surgical History Hx of cholecystectomy Family History Family History Mother Heart disease Social History Social History Smoking status: Never smoker Alcohol intake: never Substance use: never Living arrangements: with family Gender identity (if verbalized by the patient): Female Sexual Orientation (if Verbalized by the Patient): Straight or Heterosexual Spiritual care concerns: No Exam 2 Narrative: APPEARANCE: No apparent distress. well-appearing Head: atraumatic. EYES: EOMI, NOSE: Atraumatic NECK: Trachea midline RESPIRATORY: No increased rate of breathing , speaking in full sentences, clear to auscultation CARDIOVASCULAR: RRR, no peripheral edema ABDOMINAL: Non-distended MUSCULOSKELETAl: No obvious deformities NEURO: Alert. Moving 4/4 extremities SKIN:: Warm, dry. Normal color PSYCHIATRIC: Normal affect Course Vital Signs Vital signs: Vital Signs Temperature 98.2 F 05/10/25 19:33 Pulse Rate 79 05/10/25 19:33 Respiratory Rate 20 05/10/25 19:33 Blood Pressure 134/100 H 05/10/25 19:33 Pulse Oximetry 100 05/10/25 19:33 Oxygen Delivery Room Air 05/10/25 19:33 Temperature 98.2 F 05/10/25 19:33 Pulse Rate 81 05/10/25 21:50 Respiratory Rate 14 05/10/25 20:36 Blood Pressure 134/100 H 05/10/25 19:33 Pulse Oximetry 96 05/10/25 21:51 Oxygen Delivery Nasal Cannula 05/10/25 21:51 Oxygen Flow Rate 4 05/10/25 21:51 Medical Decision Making [facility] Narrative Medical decision making narrative: -Course: 74-year-old female presenting with 2 weeks of cough associated with viral symptoms and chest pain and coughing. Patient's family had similar symptoms but there is improved while flori's has not. On exam she is well- appearing. Her vital signs are stable. She is not requiring supplemental oxygen. Her lungs are clear. White count is 8.2. Chest x-ray is clear. CT non-con was ordered to evaluate for occult pneumonia. CT showed very subtle ground-glass opacities in the right lung. Patient has already completed course of azithromycin and Augmentin. Based on patient's history, physical and time course of illness is most likely a resolving viral illness. She was educated on the expected course. Patient be discharged with supportive measures. Given strict return precautions. Rest the patient's lab work including troponin(chest pain ongoing for 1 week and worse when she coughs, no need for 3 hour) , kidney function within normal limits. EKG showed left bundle-branch block with no ischemic changes. -DDX includes but is not limited to: Pneumonia, viral syndrome, asthma, postviral cough, postnasal drip, ACS Vital Signs Vital Signs: Vital Signs Temperature 98.2 F 05/10/25 19:33 Pulse Rate 79 05/10/25 19:33 Respiratory Rate 20 05/10/25 19:33 Blood Pressure 134/100 H 05/10/25 19:33 Pulse Oximetry 100 05/10/25 19:33 Oxygen Delivery Room Air 05/10/25 19:33 Temperature 98.2 F 05/10/25 19:33 Pulse Rate 81 05/10/25 21:50 Respiratory Rate 14 05/10/25 20:36 Blood Pressure 134/100 H 05/10/25 19:33 Pulse Oximetry 96 05/10/25 21:51 Oxygen Delivery Nasal Cannula 05/10/25 21:51 Oxygen Flow Rate 4 05/10/25 21:51 Lab Data 05/10/25 19:58 05/10/25 19:58 Labs: Lab Results 05/10/25 Range/Units 19:58 WBC 8.2 (4.5-10.0) K/mm3 RBC 4.99 (4.2-5.4) M/mm3 Hgb 14.0 (12.0-15.0) g/dL Hct 42.7 (37.0-47.0) % MCV 85.6 (80-100) fl MCH 28.1 (26-34) pg MCHC 32.8 (32-36) g/dl RDW 14.7 H (11.5-14.5) % Plt Count 250 (150-375) k/mm3 MPV 10.2 (7.4-10.4) fl Immature Gran % (Auto) 0.2 (0-0.5) % Neut % (Auto) 38.7 L (45.5-73.1) % Lymph % (Auto) 48.7 H (18.3-44.2) % [place] % (Auto) 7.9 (2.6-8.5) % Eos % (Auto) 4.0 (0-4.4) % Baso % (Auto) 0.5 (0.2-1.2) % Lymph # (Auto) 4.01 H (0.9-3.2) K/mm3 [place] # (Auto) 0.7 H (0.1-0.6) K/mm3 Eos # (Auto) 0.3 (0-0.3) K/mm3 Baso # (Auto) 0.0 (0.0-0.1) K/mm3 Abs Immat Gran (auto) 0.02 (0.00-0.031) K/mm3 Absolute Neuts (auto) 3.2 (1.3-6.7) K/mm3 Absolute Nucleated RBC 0.000 (0.0-0.012) K/mm3 Nucleated RBC % 0.0 (0.0-0.2) % PT 13.6 (11.1-14.7) Seconds INR 1.0 APTT 28.3 (22.3-36.8) Seconds Sodium 139 (137-145) mmol/L Potassium 4.0 (3.4-5.0) mmol/L Chloride 105 (98-107) mmol/L Carbon Dioxide 25 (22-30) mmol/L Anion Gap 9 (4-12) mmol/L BUN 10 (7-17) mg/dL Creatinine 0.95 (0.7-1.0) mg/dL Estim Creat Clear Calc 47 ml/min Estimated GFR 58 L (59 - ) Glucose 124 H (65-110) mg/dL Calcium 9.7 (8.4-10.2) mg/dL Total Bilirubin 0.8 (0.2-1.3) mg/dL AST 29 (14-36) U/L ALT 34 (6-35) U/L Alkaline Phosphatase 96 (38-126) U/L Troponin I < 0.012 (0.000-0.034) ng/mL Total Protein 8.0 (6.3-8.2) g/dL Albumin 4.2 (3.5-5.1) g/dL Lipase 152 (23-300) U/L Influenza A (RT-PCR) Negative (Negative) Influenza B (RT-PCR) Negative (Negative) RSV (RT-PCR) Negative (Negative) SARS-CoV-2 RNA (RT-PCR) Negative (Negative) Discharge Plan Discharge Clinical Impression: Acute viral syndrome, Cough, Chest pain, atypical Patient Disposition: Home Condition: Stable Instructions: Antibiotic Form, Acute Cough (ED) Additional Instructions: Please use Robitussin and cepachol lozenges as needed for cough. Please use Tylenol for body aches. Please follow-up with your primary care physician in 3- 5 days. If you develop worsening chest pain, shortness of breath or feel like you are getting worse please return to the emergency immediately. Patient Language: Slovak Prescriptions: New Cepacol Sore Throat (rossy-men) 15-3.6 mg lozenge 1 raj mucous membrane Q2-4H PRN (Reason: sore throat) Qty: 16 0RF Robitussin Cough-Chest Tan DM 10-200 mg capsule 1 tab-cap PO ONCE PRN (Reason: cough) Qty: 14 0RF No Action latanoprost 0.005 % drops See Rx Instructions .ROUTE .COMPLEX Rx Instructions: Rx atorvastatin 10 mg tablet 10 mg PO DAILY amlodipine 5 mg tablet 5 mg PO DAILY omeprazole 40 mg capsule,delayed release(DR/EC) 40 mg PO DAILY brimonidine 0.2 % drops See Rx Instructions .ROUTE .COMPLEX Rx Instructions: Rx dorzolamide 2 % drops See Rx Instructions .ROUTE .COMPLEX Rx Instructions: Rx Simbrinza 1-0.2 % drops,suspension See Rx Instructions .ROUTE .COMPLEX Rx Instructions: Rx carvedilol 3.125 mg tablet 3.125 mg PO Q12H Qty: 60 0RF Rx Instructions: must administer with a meal/food Follow-up/Referrals: PHYSICIAN NOT ON STAFF,NONSTAFF [Primary Care Provider]
[2025-05-10 20:07] LABS: Hematocrit 42.7 % (37.0-47.0); Hemoglobin 14.0 g/dL (12.0-15.0); Immature Granulocyte Percent A 0.2 % (0-0.5); Lymphocytes Absolute Auto 4.01 K/mm3 (0.9-3.2); Mean Corpuscular HGB Conc 32.8 g/dl (32-36); Mean Corpuscular Hemoglobin 28.1 pg (26-34); Mean Corpuscular Volume 85.6 fl (80-100); Nucleated Red Blood Cells Absolute Auto 0.000 K/mm3 (0.0-0.012); Nucleated Red Blood Cells Perc 0.0 % (0.0-0.2); Platelet Count Result 250 k/mm3 (150-375); Red Blood Count 4.99 M/mm3 (4.2-5.4); White Blood Count 8.2 K/mm3 (4.5-10.0)
[2025-05-10] MEDS: SODIUM CHLORIDE 0.9% IV 1,000 ML 999 ML IV CONT (20:09)
[2025-05-10] MEDS: ACETAMINOPHEN 500 MG TABLET 1000 MG PO (20:09)
--- OUTSIDE RECORDS SUMMARY | 2025-05-10 20:09 | XMS_ITS | Clinical Summary ---
Author Organization [facility] Care Team Providers Care Ichthyology Teacher Name Role Phone Unavailable Primary Care Provider Unavailabl e Social History Tobacco Use Types Packs/Day Years Used Date Smoking Tobacco: Never Assessed Comments Unknown Sex and Gender Information Value Date Recorded Sex Assigned at Not on file Legal Sex Female 1:14 PM BUNDLE PERSON Gender Identity Not on file Sexual Orientation [...]
--- OUTSIDE RECORDS SUMMARY | 2025-05-10 20:09 | XMS_ITS | Clinical Summary ---
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
--- OUTSIDE RECORDS SUMMARY | 2025-05-10 20:09 | XMS_ITS | Clinical Summary ---
Author Organization [facility] Address [address] [place] [id number] Care Team Providers Care Transmission Assembler Name Role Phone Unavailable Primary Care Provider Unavailabl e Allergies Active Allergy Reactions Criticality Noted Date Comments Ciprofloxacin Nausea and Vomiting 09/07/2017 Medications No known medications Active Problems No known active problems Social History Tobacco Use Types Packs/Day Years Used Date Smoking Tobacco: Never Smokeless Tobacco: Never Alcohol Use Standard Drinks/Week Comments No 0 (1 standard drink = 0.6 oz pur e alcohol) Comments No Sex and Gender Information Value Date Recorded Sex Assigned at Not on file Legal Sex Female 4:35 PM CDT Gender Identity Not on file Sexual Orientation Not on file Last Filed Vital Signs Vital Sign Reading Time Taken Comments Blood Pressure 163/85 09/07/2017 5:37 PM WEIGHT CALLER Pulse 85 09/07/2017 5:37 PM WEIGHT CALLER Temperature 36.9 C (98.4 F) 09/07/2017 5:37 PM WEIGHT CALLER Respiratory Rate 18 09/07/2017 5:37 PM WEIGHT CALLER Oxygen Saturation 98% 09/07/2017 5:37 PM WEIGHT CALLER Inhaled Oxygen Concentration - - Weight 78.6 kg (173 lb 4.5 oz) 09/07/2017 5:43 P M WEIGHT CALLER Height - - Body Mass Index - - Plan of Treatment Health Maintenance Due Date Last Done Comments Colorectal Cancer Screening Colonoscopy (10 Years) 1951 Hepatitis C 1969 DTaP, Tdap and Td Vaccines ( 1 - Tdap) 1970 Mammogram Screening 1991 Pneumococcal Vaccine: 50+ Ye ars (1 of 1 - PCV) 2001 Zoster Vaccines (1 of 2) 2001 Dexa Scan (General) 2016 COVID-19 Vaccine (2023-2 5 season) 2025 RSV Immunization or 60+ Years (1 - 1-dose 75+ series) 2026 Meningococcal B Vaccine Aged Out No l onger eligible based on patient's age to complete this topic Meningococcal Vaccine Aged Out No manda suzette eligible based on patient's age to complete this topic RSV Immunizations Under 20 Months Aged Out No longer eligible based on patient's age to complete this topic Insurance [facility]IC[facility] PART A
[2025-05-10 20:15] LABS: INR 1.0; Prothrombin Time 13.6 Seconds (11.1-14.7)
[2025-05-10 20:16] LABS: Partial Thromboplastin Time 28.3 Seconds (22.3-36.8)
[2025-05-10 20:20] LABS: Alanine Aminotransferase 34 U/L (6-35); Albumin Level 4.2 g/dL (3.5-5.1); Alkaline Phosphatase 96 U/L (38-126); Anion Gap 9 mmol/L (4-12); Aspartate Amino Transferase 29 U/L (14-36); Bilirubin,Total 0.8 mg/dL (0.2-1.3); Blood Urea Nitrogen 10 mg/dL (7-17); Calcium 9.7 mg/dL (8.4-10.2); Carbon Dioxide 25 mmol/L (22-30); Chloride 105 mmol/L (98-107); Estimated CRCL calculation 47 ml/min; Estimated Glomerular Filt Rate 58; Glucose 124 mg/dL (65-110); Lipase 152 U/L (23-300); Potassium 4.0 mmol/L (3.4-5.0); Sodium 139 mmol/L (137-145); Total Protein 8.0 g/dL (6.3-8.2)
[2025-05-10 20:32] LABS: Troponin I < 0.012 ng/mL (0.000-0.034)
[2025-05-10] MEDS: IPRATROPIUM 0.5 MG/ALBUTEROL SULFATE 2.5 MG AMPUL.NEB 3 ML 6 ML INHALATION (20:35)
[2025-05-10 20:36] VITALS: PULSE 66; RESP 14
[2025-05-10 20:48] LABS: Influenza A QL RT-PCR Negative (Negative); Influenza B QL RT-PCR Negative (Negative); RSV RNA, RT-PCR Negative (Negative); SARS-CoV-2 RNA PCR Negative (Negative)
--- NOTE | 2025-05-10 21:20 | PC.NURSE ---
assumed care of pt at 2055 from Randa COFFEY.
[2025-05-10 21:27] VITALS: BP 160/59; PULSE 84; RESP 19; O2SAT 99
[2025-05-10 21:50] VITALS: PULSE 81
[2025-05-10 21:51] VITALS: O2SAT 96
[2025-05-10 22:27] VITALS: BP 156/61; PULSE 78; RESP 21; O2SAT 98
== END 2025-05-10 22:29 | disposition home or self-care (01) ==
PROVIDERS: Emergency Provider Emergency Medicine
DX: B34.9 Viral infection, unspecified (principal); R05.9 Cough, unspecified; R07.89 Other chest pain; Z20.822 Contact with and (suspected) exposure to COVID-19; I25.2 Old myocardial infarction; E78.5 Hyperlipidemia, unspecified; I10 Essential (primary) hypertension
CPT/HCPCS: 36415; 71045; 71250; 80053; 83690; 84484; 85025; 85610; 85730; 87637; 93005; 94640; 96360; 99284; A9270; J7030